=== PATIENT | female | born 1940 | race Caucasian/White ===

== ENCOUNTER 2024-10-17 08:00 | Day surgery (SDC) | payer MEDICARE, SELFPAY ==
[2024-10-11 08:48] VITALS: BMI 27.6
[2024-10-17] VITALS (14 sets, daily range): BP systolic 127–179; BP diastolic 67–91; PULSE 69–89; RESP 12–17; TEMP 36.1–36.6; O2SAT 90–99; BMI 28.5
--- NOTE | 2024-10-17 06:14 | P.HP_ITS ---
History of Present Illness History of Present Illness Chief complaint: Right Hammertoe Repair Narrative: 84 year old female here for misaligned toes on right foot due to bunion and hammertoe. She reports that the pain extends from the foot up to the calf. She has tried various wide shoes for both women and men for years without relief, and the condition is getting worse. The pain negatively affects her activities of daily living greatly. She was taking aspirin for nerve pain in the feet from the deformities, which led to bleeding ulcer due to excessive consumption and resulting in hospitalization and a coma earlier in the year. Patient has been cleared by primary care physician to proceed with elective surgery. Patient denies recent changes to medical history. Patient denies n/v/f/c/sob/cp. [facility] Medical History (Updated 10/11/24 @ 08:58 by Karoline Gutierrez RN) Hammertoe of right foot Bunion, right foot Neuropathy Arthritis HTN (hypertension) HLD (hyperlipidemia) Anemia Pre-diabetes Peripheral neuropathy GIB (gastrointestinal bleeding) Meds Home Medications and Allergies Home Medications Medication Instructions Recorded Confirmed Type gabapentin 100 mg capsule 100 mg PO BEDTIME 06/13/24 06/13/24 History lisinopril 20 mg tablet 20 mg PO DAILY 06/13/24 06/13/24 History pantoprazole 40 mg tablet,delayed 40 mg PO BID 06/13/24 06/13/24 History release pregabalin 25 mg capsule 25 mg PO BID 06/13/24 06/13/24 History Exam Extrem Other: Right foot: Moderate hallux abducto valgus deformity with enlarged medial eminence. Deformity is track bound and not reducible. Semi-rigid hammertoe 2. Dorsal contracture at MTP joint 2. Assessment & Plan Assessment & Plan narrative: 1. Right foot bunion 2. Right second metatarsophalangeal joint contracture 3. Right second digit hammertoe Patient seen and evaluated. Surgical plan: right foot bunion correction with distal first metatarsal and possible proximal phalanx osteotomy, right foot second metatarsal shortening osteotomy, and right foot second hammertoe correction. Risks and benefits of the procedure discussed with all questions answered to patient's satisfaction. Reviewed potential complications that may include but not limited to the following: DVT, failure to resolve all symptoms, infection, nerve injury, bleeding, recurrence, or wound. Reviewed surgical technique and general aftercare protocols. Performed medication reconciliation. All questions answered to patient's satisfaction with no guarantees made. Patient verbalized understanding and agreed with surgical plan. RTC for post-op. Time-Based Coding :: [TOTAL MINUTES] spent with patient and on the chart (including review of chart, obtaining history, exam, reviewing outside data, placing orders, documenting exam and treatment plan, and counseling patient) on [DATE].
--- NOTE | 2024-10-17 06:20 | PM.PREOP ---
Pre-operative Note Interval Note History & Physical reviewed/Exam performed by Physician: Yes Changes to H&P: No
[2024-10-17] MEDS: PREGABALIN 75 MG CAPSULE PO (09:20)
[2024-10-17] MEDS: FAMOTIDINE 20 MG/2 ML VIAL IV (09:20)
[2024-10-17] MEDS: ACETAMINOPHEN 325 MG TABLET 975 MG PO (09:20)
[2024-10-17] MEDS: LIDOCAINE 1% (PF) 5 ML 10 ML INJ (11:13)
[2024-10-17] MEDS: CEFAZOLIN 2 GM/100 ML PREMIX 100 ML IV (11:15)
--- NOTE | 2024-10-17 11:39 | SUR.OPER ---
Supine on padded OR bed, head on pillow, arms secured on padded arm boards at <90 degrees abduction, legs uncrossed, safety belt at thigh, tape over blanket over non operative leg.
[2024-10-17] MEDS: LACTATED RINGERS 1,000 ML 100 ML IV (12:55)
[2024-10-17] MEDS: BUPIVACAINE LIPOSOME 266 MG/20 ML VIAL INJ (13:51)
[2024-10-17] MEDS: ONDANSETRON 4 MG/2 ML INJ IV (14:49)
--- NOTE | 2024-10-17 16:15 | SUR.PHASEII ---
attempted to get the patient up to the bathroom and patient has poor head control and poor core control. Dr. Gill notified.
--- NOTE | 2024-10-17 16:38 | P.CONS_ITS ---
History of Present Illness Consult details Date Patient Seen: 10/17/24 Time Patient Seen: 16:39 Chief complaint: Right Hammertoe Repair Narrative: The patient was an 84-year-old female who underwent foot surgery today for correction of hammertoe. She underwent general anesthesia and received fentanyl. She also received Lyrica 75 mg before the case. The case was uncomplicated, there was no period of hypoxemia or hypotension. The patient was taking several hours to wake up in the emergency department in his not stable enough to be discharged home. She was accompanied by her , they live in [place] which is an approximate 2-1/[address] from here. The patient is responding and answering simple questions but is very sedated. She was following commands and can move her arms and left foot to command. Her right foot he was splinted. She has a history of hypertension, hyperlipidemia, and neuropathy. She takes Lyrica chronically. Meds Home Medications and Allergies Home Medications Medication Instructions Recorded Confirmed Type gabapentin 100 mg capsule 100 mg PO BEDTIME 06/13/24 10/17/24 History lisinopril 20 mg tablet 20 mg PO DAILY 06/13/24 10/17/24 History pantoprazole 40 mg tablet,delayed 40 mg PO BID 06/13/24 10/17/24 History release pregabalin 25 mg capsule 25 mg PO BID 06/13/24 10/17/24 History oxycodone-acetaminophen 5 mg-325 1 tab PO Q6H PRN pain #20 tabs 10/17/24 Rx mg tablet (Percocet) Allergies Allergy/AdvReac Type Severity Reaction Status Date / Time aspirin Allergy Intermediate Gastrointestinal Verified 10/17/24 08:39 Upset Review of Systems Review of Systems Narrative: Review of systems is limited by her level of sedation. Exam Vital Signs (past 8 hours): - 10/17/24 08:52 10/17/24 14:23 10/17/24 14:28 Temperature 96.9 F L 97.5 F L Pulse Rate 72 79 79 Respiratory Rate 16 13 12 Blood Pressure 179/77 H 164/67 H 172/82 H Pulse Oximetry 99 92 92 Oxygen Delivery Method Room Air Room Air Room Air Oxygen Flow Rate 10/17/24 14:33 10/17/24 14:38 10/17/24 14:50 Temperature Pulse Rate 78 73 75 Respiratory Rate 13 15 15 Blood Pressure 168/74 H 173/75 H 158/76 H Pulse Oximetry 92 96 96 Oxygen Delivery Method Room Air Nasal Cannula Nasal Cannula Oxygen Flow Rate 2 10/17/24 15:00 10/17/24 15:10 10/17/24 15:25 Temperature Pulse Rate 74 74 73 Respiratory Rate 15 15 14 Blood Pressure 164/84 H 162/78 H 152/77 H Pulse Oximetry 95 94 94 Oxygen Delivery Method Nasal Cannula Nasal Cannula Nasal Cannula Oxygen Flow Rate 1 1 1 10/17/24 16:20 Temperature 97.8 F Pulse Rate 77 Respiratory Rate 17 Blood Pressure 149/79 H Pulse Oximetry 96 Oxygen Delivery Method Room Air Oxygen Flow Rate Oxygen Delivery Method Room Air Oxygen Flow Rate 1 Narrative Exam Narrative: NAD, alert and oriented, slow to answer, and slurred speech, sedated. Normocephalic skull, EOMI, anicteric sclera, symmetric pupils. Oropharynx unremarkable, no droop. Neck supple, midline trachea, no adenopathy. Lungs clear, normal rate and effort. Heart regular, no murmur gallop or rub. Abdomen is soft, non distended and non tender. Extremities are free of edema. Skin is free of rash or lesions. Joints are not swollen or deformed. Right foot is splinted from her surgery. [facility] Medical History Hammertoe of right foot Bunion, right foot Neuropathy Arthritis HTN (hypertension) HLD (hyperlipidemia) Anemia Pre-diabetes Peripheral neuropathy GIB (gastrointestinal bleeding) Social History household members: spouse Tobacco & Substance Use Smoking Status: Never smoker alcohol intake: never Assessment & Plan Assessment & Plan narrative: 1. Sedation postoperatively, present on admission and improving. 2. Hypertension, present on admission and active. 3. Hyperlipidemia, present on admission and active. 4. Neuropathy, present on admission and active. Plan: -admit her for observation, we will monitor her level of sedation and ability to wake up. She appears to be progressing at this point in his following commands. -Tylenol for mild pain, oxycodone for more severe pain. -resume usual dosages of lisinopril and Lyrica 25 b.i.d.. Anticipate 1 [place] stay. Full code. is proxy. Time-Based Coding :: 40 min spent with patient and on the chart (including review of chart, obtaining history, exam, reviewing outside data, placing orders, documenting exam and treatment plan, and counseling patient) on 10/17.
[2024-10-17 17:11] LABS: Hematocrit 39.8 % (36-46); Hemoglobin 13.3 g/dL (12.0-16.0); Mean Corpuscular HGB Conc 33.4 % (30-36); Mean Corpuscular Hemoglobin 28.6 PG (26-34); Mean Corpuscular Volume 85.9 fL (80-100); Platelet Count 188 X10^3/uL (150-400); Red Blood Cell Count 4.64 X10^6/uL (4.0-5.2); Red Cell Distribution Width 13.8 % (11.6-14.8); White Blood Cell Count 6.6 X10^3/uL (4.5-11.0)
[2024-10-17 17:22] LABS: Alanine Aminotransferase 22 IU/L (<35); Albumin 4.1 g/dL (3.5-5.0); Albumin Globulin Ratio 1.7 (1.0-2.8); Alkaline Phosphatase 92 U/L (38-126); Aspartate Aminotransferase 26 IU/L (14-36); BUN Creatinine Ratio 19.7 (6-22); Bilirubin Total 1.2 mg/dL (0.2-1.3); Blood Urea Nitrogen 13 mg/dL (7-17); Calcium 8.9 mg/dL (8.4-10.2); Carbon Dioxide 21 mmol/L (22-32); Chloride 109 mmol/L (98-107); Estimated Glomerular Filt Rate > 60 mL/min (>60); Globulin 2.4 g/dL (1.7-4.1); Glucose 136 mg/dL (80-110); HEMOLYSIS 15 (0-50); Sodium 139 mmol/L (137-145); Total Protein 6.5 g/dL (6.3-8.2)
[2024-10-17] MEDS: PREGABALIN 25 MG CAPSULE PO (20:06)
[2024-10-17] MEDS: GABAPENTIN 100 MG CAPSULE PO (20:06)
[2024-10-17] MEDS: PANTOPRAZOLE DR 40 MG TABLET PO (20:07)
[2024-10-18 00:24] VITALS: BP 130/77; PULSE 74; RESP 18; TEMP 37; O2SAT 96
[2024-10-18] MEDS: ACETAMINOPHEN 325 MG TABLET 650 MG PO (05:01)
[2024-10-18] MEDS: OXYCODONE IR 5 MG TABLET PO ×2 (05:02→09:04)
[2024-10-18 08:32] VITALS: BP 120/88; PULSE 72; RESP 18; TEMP 36.6; O2SAT 100
[2024-10-18 09:04] VITALS: BP 120/88; PULSE 72
[2024-10-18] MEDS: PREGABALIN 25 MG CAPSULE PO (09:04)
[2024-10-18] MEDS: lisinopriL 20 MG TABLET PO (09:04)
[2024-10-18] MEDS: PANTOPRAZOLE DR 40 MG TABLET PO (09:04)
--- NOTE | 2024-10-18 09:04 | CM.DANOTE ---
Initial DCP Assessment Note Pt is a 84 yo female, resident of [place], s/p foot surgery today for correction of hammertoe, admitted to the ACU after surgery for safety purposes as patient very sedated, lives 2 1/2 hrs away in [place] and elderly spouse needing to drive patient home. PCP: Pernell Muñiz Payer: JUANA ([facility]) MCR Reviewed chart, met w/patient and spouse; both had questions about patient's medical bill - SDC status and patient staying the night. Discussed to the best of this HEAVY [employer] MECH[employer]IC's ability and knowledge base. Suggested the following: -Call [facility] MCR to ask what happens w/billing when a same day surgery ends up spending the night on the ACU. -Once medical bill arrives, patient has the right to appeal the bill -Alternatively, if bill arrives and patient cannot pay full amount, discuss payment plan vs [facility] with billing dept Patient and spouse appreciative for the visit. Patient/sp deny further needs, patient feels she has what she needs to recover once home. No barriers identified at this time to patient's safe discharge home w/family to assist; close outpatient f/u recommended. CM team will plan to follow clinical course closely in case any DC needs or concerns arise. AIRAM Oliva Discharge Planning/Care Management CM Discharge Assessment Start: 10/18/24 09:02 Freq: Status: Active Protocol: Document 10/18/24 09:02 WHIT (Rec: 10/18/24 09:04 WHIT [id number]) Discharge Planning Assessment Assigned Machine Chain Maker AIRAM Gardner DPOA/Assigned Designee Name Zacarias Zheng, spouse Contact Information [phone] Advance Directives? No: Patient does not have advanced directive in possession. History Provided By Patient,Significant Other Prior Living Arrangements House Household Members spouse Type of transporation used prior to Drives own vehicle admit Independent with ADL's Yes Is patient alert and oriented? Yes Barriers to Discharge No Discharge Plan Home Transportation Arrangement Spouse Referrals Initiated None needed
--- NOTE | 2024-10-18 11:52 | P.DS_ITS ---
History of Present Illness History of Present Illness Date Patient Seen: 10/18/24 Time Patient Seen: 08:50 Date of Onset of Symptoms: 10/17/24 Chief complaint: Right Hammertoe Repair Narrative: The patient was an 84-year-old female who underwent foot surgery today for correction of hammertoe. She underwent general anesthesia and received fentanyl. She also received Lyrica 75 mg before the case. The case was uncomplicated, there was no period of hypoxemia or hypotension. The patient was taking several hours to wake up in the emergency department in his not stable enough to be discharged home. She was accompanied by her , they live in [place] which is an approximate 2-1/[address] from here. The patient is responding and answering simple questions but is very sedated. She was following commands and can move her arms and left foot to command. Her right foot he was splinted. She has a history of hypertension, hyperlipidemia, and neuropathy. She takes Lyrica chronically. Discharge Providers Provider Discharge Date: 10/18/24 Primary care physician: Pernell Muñiz MD Discharge provider: Black Suggs MD Summary Hospital Course Discharge Diagnosis: 1. Sedation postoperatively, present on admission and resolved. 2. Hypertension. 3. Hyperlipidemia. 4. Neuropathy. 5. Bunion and hammertoes right foot, s/p surgical correction. Hospital Course: The patient was admitted to the medical floor for overnight observation. She woke up without complications or deficits. She remained hemodynamically stable with mild postoperative hypertension which resolved prior to discharge, with normal heart rates and oxygenation throughout her hospitalization. She was feeling well following morning and interested in discharge home. No issues arose of concern and she was felt to have simply experienced excessive sedation due to anesthetics and possibly Lyrica which she would taken the night before surgery. Status at Discharge Cognitive/behavioral status at discharge: oriented Functional status at discharge: independent ambulation Overall status at discharge: patient is back to baseline Time Spent with Patient Time spent: Less than 30 minutes Exam Vital Signs (past 8 hours): - 10/18/24 08:32 10/18/24 09:04 Temperature 97.9 F Pulse Rate 72 72 Respiratory Rate 18 Blood Pressure 120/88 120/88 Pulse Oximetry 100 Oxygen Flow Rate 0 Oxygen Delivery Method Room Air Oxygen Flow Rate 0 Narrative Exam Narrative: NAD, alert and oriented, slow to answer, and slurred speech, sedated. Normocephalic skull, EOMI, anicteric sclera, symmetric pupils. Oropharynx unremarkable, no droop. Neck supple, midline trachea, no adenopathy. Lungs clear, normal rate and effort. Heart regular, no murmur gallop or rub. Abdomen is soft, non distended and non tender. Extremities are free of edema. Skin is free of rash or lesions. Joints are not swollen or deformed. Right foot walking boot in place. Normal sensation in the toe tips. No calf swelling or tenderness. Objective Labs 10/17/24 17:03 10/17/24 17:03 Labs: Laboratory Results - last 24 hr 10/17/24 17:03 WBC 6.6 RBC 4.64 Hgb 13.3 Hct 39.8 MCV 85.9 MCH 28.6 MCHC 33.4 RDW 13.8 Plt Count 188 Sodium 139 Potassium 4.0 Chloride 109 H Carbon Dioxide 21 L BUN 13 Creatinine 0.66 Estimated GFR > 60 BUN/Creatinine Ratio 19.7 Glucose 136 H Calcium 8.9 Total Bilirubin 1.2 AST 26 ALT 22 Alkaline Phosphatase 92 Total Protein 6.5 Albumin 4.1 Globulin 2.4 Albumin/Globulin Ratio 1.7 [facility] Medical History Anemia Arthritis Bunion, right foot GIB (gastrointestinal bleeding) Hammertoe of right foot HLD (hyperlipidemia) HTN (hypertension) Neuropathy Peripheral neuropathy Pre-diabetes Social History household members: spouse Smoking Status: Never smoker alcohol intake: never Discharge Plan Discharge Plan Patient Disposition: Home Nursing Discharge Comment: You were given Tylenol, Lyrica and Pepcid at 9:30am. You can have another dose of Tylenol at 3:30pm tonight. Do not exceed over 3000mg in a 24 hours period. Discharge orders & Medications Discharge Orders: Discharge (Order); Ordered 10/18/24 Ordered By: Black Suggs Prescriptions: New oxycodone-acetaminophen [Percocet] 5-325 mg tablet 1 tab PO Q6H PRN (Reason: pain) Qty: 20 0RF ondansetron 8 mg tablet,disintegrating 8 mg PO Q12H PRN (Reason: nausea and vomiting) Qty: 20 0RF Continued lisinopril 20 mg Tablet 20 mg PO DAILY pantoprazole 40 mg tablet,delayed release (DR/EC) 40 mg PO BID gabapentin 100 mg capsule 100 mg PO BEDTIME pregabalin 25 mg capsule 25 mg PO BID Follow up/Referrals: Pernell Muñiz MD [Primary Care Provider] - Diet/Activity/Treatments Diet: Regular Activity: Non weight-bearing to surgical limb. Elevate surgical leg above heart on 2+ pillows as much as possible. Cold/Heat Therapy: Ice behind knee 15 minutes/hour. Skin/Wound/Dressing Care Skin care: Keep dressing clean, dry, and intact. Report to your healthcare provider any signs of infection, such as:: chills, fever, night sweats, increased pain and unusual drainage Visit Report/Discharge Packet Instructions: DI for Bunion Removal, DI for Hammer Toe Correction, DI for Prescription Opioid Use Stand Alone Forms: Patient Portal/API, Dr. Caldwell Discharge Discharge Data Primary Care Provider: Pernell Muñiz Attending Provider: Rosalio Gill VTE Deep Vein Thrombosis/Pulmonary Embolism Present on Admission: No MIPS - Admit I confirm the patient?s Advance Care Plan is present, Code status is documented, Surrogate decision maker is in patient?s record [If Yes, STOP here]: Yes MIPS - Meds 'Current medications' to include all prescriptions, [id number] products, herbals, cannabis/cannabidiol products, and vitamin/mineral/dietary (nutritional) supplements. I have utilized all available resources to obtain, update, or review the patient?s current medications. [If Yes, STOP here]: Yes MIPS - DC The patient has a history of heart transplant or Left Ventricular Assist Device (LVAD). If yes, STOP here.: No The patient has current or prior documentation of left ventricular ejection fraction (LVEF) less than or equal to 40%, or moderate or severely depressed left ventricular systolic function.: No A. The patient was prescribed or already taking an Angiotensin-Converting Enzyme (SAMANTHA) Inhibitor, or Angiotensin Receptor Harono (ARB).: Yes B. The patient was prescribed or already taking a beta-haroon. [If Yes to Both A & B, STOP here]: No Patient not prescribed/taking SAMANTHA or ARB, no reason given.: No Patient not prescribed/taking beta-haroon, no reason given.: No PROFEE Charge Codes Discharge inpatient/observation: 70179
--- NOTE | 2024-10-19 10:40 | PM.OP.1 ---
Operative Date/Time/Diagnoses Date of procedure: 10/17/24 Pre-op diagnosis: 1. Right foot bunion 2. Right foot second metatarsophalangeal joint contracture 3. Right foot second toe hammer digit syndrome Post-op diagnosis: same Procedure & Clinicians Procedure: 1. Right foot double osteotomy bunion correction 2. Right foot Lucas osteotomy 3. Right foot second toe single joint arthrodesis Same procedure as scheduled: Yes Indications: Continuous right foot pain that inhibits ambulation and negatively affects activities of daily livings Surgeon: Rosalio Gill Click Yes if Unassisted: Yes Anesthesia Type: General and Local Operative Notes Findings: Consistent with pre-op diagnosis Closure Type: primary Specimen(s): none sent Estimated Blood Loss (mL): 50 Blood products transfused: none Tourniquet time (min): 108 Procedure in detail: Patient was identified and transferred onto operating table from [facility] in supine position. General anesthesia was administered, followed by local injection with 10 cc 1% lidocaine plain. An 18 inch tourniquet was applied to right ankle over well-padded surface. Right foot was then prepped and draped in the usual sterile fashion, followed by official timeout with surgical team all in agreement. Right foot was exsanguinated, and the tourniquet was inflated to 200 mmHg. Attention was directed to the bunion deformity on the right foot. A linear dorsal incision was made over the first ray using a # 15 scalpel. The incision was then deepened, and care was taken to protect neurovascular structures. Dissection was carried down to the joint, and a linear capsular incision was made over the first metatarsophalangeal joint. The periosteum and capsule were then reflected as necessary. Decision was made to perform lateral release with transaction of associated structures. A sagittal on power was then used to create a long dorsal arm for the head osteotomy. The capital fragment was then translated laterally until correction of the intermetatarsal angle was noted. Following manufacture technique, two 2.5 mm headless compression screws were inserted over cannulated K-wires. Attention was then directed to the proximal phalanx of the hallux. The capsular periosteum was reflected off of the base of the proximal phalanx. A sagittal was then used to create a closing medial base wedge, which was fixated with a compression staple. Improved anatomical alignment was verified on fluoroscopy. Attention was directed to right second ray. A linear incisions was made using a #15 scalpel over the distal second metatarsal bone towards the joint. Dissection was carried out in layers down to the level of capsule, which was sharply reflected. Care was taken to protect the neurovascular and tendinous structures.A sagittal saw on power was then used to make an osteotomy in parallel with weight bear surface. This allows for proximal shifting of the second metatarsal bone by approximately 3 mm to alleviate the contracture. The fixation was completed using two snap-off screws. Improved anatomical alignment was verified on fluoroscopy. Attention was finally directed to right second toe. A linear incision was made of the proximal interphalangeal joint using a # 15 scalpel. Dissection was carried out in layers down to the level of capsule, which was sharply reflected. Care was taken to protect the neurovascular and tendinous structures. A sagittal saw on power was then used to resect cartilage down to subchondral bone on all respective surfaces. Following manufacture instructions for the implant, the right second toe was held in rectus position upon insertion of metallic implant to complete the arthrodesis. Improved anatomical alignment was verified on fluoroscopy. All surgical sites were irrigated with copious saline and dried. All incision site were closed in layers from deep to superficial structures using 2-0 vicryl, 3-0 vicryl, 4-0 vicryl, 3-0 nylon, and 4-0 nylon. Tourniquet was released, and adequate capillary fill time was noted to all toes. 12 cc of Exparel was administered for local block. Right foot was then cleaned and dried. Iodine soaked Adaptic was applied to incision sites, and they were covered with bulky sterile dressings and placed in a CAM boot. Patient tolerated procedure without complication and was transferred to post-anesthesia care unit with all vital signs stable Complications: none Post-operative Condition: stable Disposition: observation Plan for aftercare: Non weight-bearing to surgical limb. Elevate above heart on 2+ pillows. Ice behind knee 15 minutes/hour. Keep dressing clean, dry, and intact.
== END 2024-10-18 10:29 | disposition home or self-care (01) ==
LOC: OR 15:48 → AC 16:54
PROVIDERS: Hospitalist; PCP Family Medicine; Referring Provider Podiatrist Foot & Ankle Surgery; Visit Provider Podiatrist Foot & Ankle Surgery
PROC: (CPT 28285; principal; 2024-10-17 10:00)
DX: M21.611 Bunion of right foot (principal); M24.574 Contracture, right foot; M20.41 Other hammer toe(s) (acquired), right foot; I10 Essential (primary) hypertension; E78.5 Hyperlipidemia, unspecified; G62.9 Polyneuropathy, unspecified
CPT/HCPCS: 28299; 28308; 28285; 80053; 82962; 85027; C1713; J0666; J0690; J1100; J2405; J2704; J3010